=== PATIENT | male | born 1980 | race Caucasian/White ===

== ENCOUNTER 2022-12-03 01:20 | Emergency (ER) | payer OTHER ==
[~2022-12-03] VITALS: Ht 160 cm; Wt 137.9 kg
[2022-12-03 01:31] VITALS: BP 159/79; PULSE 110; RESP 22; TEMP 98.2; O2SAT 96
== END 2022-12-03 03:16 | disposition left against medical advice (07) ==
LOC: MED 01:20
DX: R06.02 Shortness of breath (principal); M79.89 Other specified soft tissue disorders; Z53.21 Procedure and treatment not carried out due to patient leaving prior to being seen by health care provider
CPT/HCPCS: 82948; 99281

== ENCOUNTER 2023-02-14 00:50 | Observation (INO) | payer OTHER ==
[~2023-02-14] VITALS: Ht 162.6 cm; Wt 127.0 kg
[2023-02-14 00:55] VITALS: BP 164/90; PULSE 104; RESP 20; TEMP 95.7; O2SAT 97
[2023-02-14 02:01] LABS: BASOPHILS % (AUTO) 0.2 % (0.0-2.0); EOSINOPHILS # (AUTO) 0.4 K/uL (0-0.4); EOSINOPHILS % (AUTO) 2.5 % (0.0-4.0); HEMOGLOBIN 16.7 g/dL (12.0-18.0); LYMPHOCYTES # (AUTO) 1.9 K/uL (2.0-11.5); LYMPHOCYTES % (AUTO) 12.9 % (20.5-51.1); MEAN CORPUSCULAR HEMOGLOBIN 29 pg (27-31); MEAN CORPUSCULAR HGB CONC 33 g/dL (33-37); MEAN CORPUSCULAR VOLUME 87.4 fL (80-94); MONOCYTES # (AUTO) 1.6 K/uL (0.8-1.0); MONOCYTES % (AUTO) 10.8 % (1.7-9.3); NEUTROPHILS % (AUTO) 73.6 % (42.2-75.2); PLATELET COUNT (AUTO) 373 K/uL (140-450); RED BLOOD CELL COUNT(AUTO) 5.83 MIL/uL (4.20-6.10); RED CELL DISTRIBUTION WIDTH 13.9 % (11.6-13.7); WHITE BLOOD COUNT (AUTO) 14.9 K/uL (4.8-10.8)
[2023-02-14 02:18] LABS: ALBUMIN 3.3 g/dL (3.4-5.0); ANION GAP 10.4 (8-16); CALCIUM 8.7 mg/dL (8.5-10.1); CARBON DIOXIDE 30.2 mmol/L (21-32); CREATININE 1.1 mg/dL (0.6-1.3); POTASSIUM 3.6 mmol/L (3.5-5.1); TOTAL BILIRUBIN 0.5 mg/dL (0.0-1.0)
[2023-02-14 02:21] LABS: LACTIC ACID 1.4 mmol/L (0.4-2.0)
[2023-02-14 03:58] LABS: APPEARANCE,URINE CLEAR (CLEAR); BILIRUBIN,URINE NEGATIVE (NEGATIVE); BLOOD, URINE NEGATIVE (NEGATIVE); COLOR,URINE YELLOW (YELLOW); LEUKOCYTE ESTERASE ,URINE 1+ (NEGATIVE); NITRITE, URINE NEGATIVE (NEGATIVE); PROTEIN,URINE NEGATIVE (NEGATIVE); UGLUCOSE NEGATIVE (NEGATIVE)
[2023-02-14 04:17] LABS: AMPHETAMINE, URINE POSITIVE ng/ml (NEG <=1000); BARBITURATE, URINE NEGATIVE ng/ml (NEG <=200); BENZODIAZEPINE, URINE NEGATIVE ng/mL (NEG <=200); CANNABINOID, URINE NEGATIVE ng/mL (NEG <=50); COCAINE, URINE NEGATIVE ng/mL (NEG <=300); OPIATE, URINE NEGATIVE ng/mL (NEG <=2000); PHENCYCLIDINE SCREEN,URINE NEGATIVE ng/mL (NEG <=25)
[2023-02-14] MEDS ORDERED: HYDROcodone/APAP 5/325 MG 1 TAB TAB PO PRN (05:45)
[2023-02-14] MEDS ORDERED: ONDANSETRON 4 MG/2 ML VIAL IVP PRN (05:45)
[2023-02-14] MEDS ORDERED: MORPHINE SULFATE 4 MG/ML SYR IVP PRN (05:45)
[2023-02-14] MEDS ORDERED: LORazepam 2 MG/ML VIAL IVP SCH (05:45)
[2023-02-14] MEDS ORDERED: ACETAMINOPHEN 325 MG TAB PO PRN (05:45)
[2023-02-14] MEDS ORDERED: POTASSIUM CHLORIDE 10 MEQ TABER PO PRN (05:45)
[2023-02-14] MEDS ORDERED: MAGNESIUM OXIDE 400 MG TAB PO PRN (05:45)
[2023-02-14] MEDS ORDERED: NACL 0.9% 1,000 ML IV SCH (05:45)
[2023-02-14] MEDS ORDERED: MORPHINE SULFATE 4 MG/ML SYR IVP ONE (06:30)
[2023-02-14] MEDS ORDERED: cefTRIAXone 1,000 MG VIAL ONE (06:44)
[2023-02-14 07:22] LABS: BACTERIA,URINE FEW /HPF (None Seen); MUCUS,URINE None Seen /LPF (None Seen); RBC,URINE 0-5 /HPF (0-5); SQUAMOUS EPITHELIAL CELL,UR 0-3 (FEW) /LPF (0-3 (FEW)); TRICHOMONAS,URINE None Seen /HPF (None Seen); WHITE BLOOD CELL CASTS,URINE None Seen /LPF (None Seen); YEAST,URINE None Seen /HPF (None Seen)
[2023-02-14] MEDS ORDERED: AZITHROMYCIN 250 MG TAB PO SCH (09:00)
[2023-02-14] MEDS ORDERED: ENOXAPARIN 40 MG/0.4 ML SYR SUBQ SCH (09:00)
[2023-02-14] MEDS: FUROSEMIDE 40 MG/4 ML VIAL IVP SCH ×2 (10:05→17:03)
[2023-02-14] MEDS ORDERED: BENZ150C2 PO (11:47)
[2023-02-14 12:15] LABS: BASOPHILS % (AUTO) 0.1 % (0.0-2.0); EOSINOPHILS # (AUTO) 0.5 K/uL (0-0.4); EOSINOPHILS % (AUTO) 2.4 % (0.0-4.0); HEMATOCRIT 47.4 % (36-52); HEMOGLOBIN 15.3 g/dL (12.0-18.0); LYMPHOCYTES # (AUTO) 2.2 K/uL (2.0-11.5); LYMPHOCYTES % (AUTO) 11.4 % (20.5-51.1); MEAN CORPUSCULAR HEMOGLOBIN 28 pg (27-31); MEAN CORPUSCULAR HGB CONC 32 g/dL (33-37); MEAN CORPUSCULAR VOLUME 87.6 fL (80-94); MONOCYTES # (AUTO) 2.3 K/uL (0.8-1.0); NEUTROPHILS # (AUTO) 14.3 K/uL (1.8-7.7); NEUTROPHILS % (AUTO) 74.1 % (42.2-75.2); PLATELET COUNT (AUTO) 373 K/uL (140-450); RED BLOOD CELL COUNT(AUTO) 5.41 MIL/uL (4.20-6.10); RED CELL DISTRIBUTION WIDTH 13.8 % (11.6-13.7); WHITE BLOOD COUNT (AUTO) 19.3 K/uL (4.8-10.8)
[2023-02-14 12:30] LABS: ALBUMIN 3.1 g/dL (3.4-5.0); ANION GAP 7.8 (8-16); CALCIUM 8.2 mg/dL (8.5-10.1); CARBON DIOXIDE 31.9 mmol/L (21-32); POTASSIUM 3.7 mmol/L (3.5-5.1); TOTAL BILIRUBIN 0.6 mg/dL (0.0-1.0); TOTAL PROTEIN, SERUM 7.3 g/dL (6.4-8.2)
[2023-02-14] MEDS ORDERED: methylPREDNISolone SS 40 MG/ML VIAL IVP SCH (13:00)
[2023-02-14 14:15] VITALS: BP 109/76; PULSE 105; RESP 21; TEMP 97.4
[2023-02-14 17:15] VITALS: BP 126/67; PULSE 99; RESP 18; TEMP 98.1; O2SAT 100
== END 2023-02-14 17:17 | disposition left against medical advice (07) ==
LOC: MED 00:50 → MTU 05:46
PROVIDERS: ADMIT Hospitalist; ATTEND Hospitalist
DX: I11.0 Hypertensive heart disease with heart failure (principal); I50.9 Heart failure, unspecified; F15.129 Other stimulant abuse with intoxication, unspecified; I42.9 Cardiomyopathy, unspecified; D72.829 Elevated white blood cell count, unspecified; E11.9 Type 2 diabetes mellitus without complications; J45.909 Unspecified asthma, uncomplicated; Z79.899 Other long term (current) drug therapy
CPT/HCPCS: 36415; 71045; 80053; 80305; 81001; 83605; 83880; 84484; 85025; 87040; 87086; 96361; 96365; 96372; 96375; 96376; 99285; G0378; J0696; J1650; J1940; J2270; J2920; J7060

== ENCOUNTER 2023-03-22 17:57 | Inpatient (IN) | payer OTHER ==
[~2023-03-22] VITALS: Ht 167.6 cm; Wt 90.7 kg
[~2023-03-22 17:57] MED LIST: BENZ150C2 PO
[2023-03-22 18:10] VITALS: BP 142/100; PULSE 112; RESP 22; TEMP 98; O2SAT 98
[2023-03-22] MEDS ORDERED: methylPREDNISolone SS 125 MG/2 ML VIAL IVP ONE (18:10)
[2023-03-22] MEDS ORDERED: diphenhydrAMINE 50 MG/ML VIAL IVP ONE (18:10)
[2023-03-22] MEDS ORDERED: EPINEPHrine 1 MG/ML AMP IM ONE (18:10)
[2023-03-22] MEDS ORDERED: FAMOTIDINE 20 MG/2 ML VIAL IVP ONE (18:10)
[2023-03-22] MEDS ORDERED: ONDANSETRON 4 MG/2 ML VIAL IVP ONE (18:10)
[2023-03-22] MEDS ORDERED: ALBUTEROL SULFATE/IPRATROPIU 3 ML SOL IH ONE (18:20)
[2023-03-22 18:30] VITALS: PULSE 102; RESP 19; O2SAT 95
[2023-03-22 21:16] LABS: BASOPHILS % (AUTO) 0.1 % (0.0-2.0); EOSINOPHILS % (AUTO) 0.3 % (0.0-4.0); HEMATOCRIT 50.4 % (36-52); HEMOGLOBIN 16.7 g/dL (12.0-18.0); LYMPHOCYTES # (AUTO) 1.1 K/uL (2.0-11.5); LYMPHOCYTES % (AUTO) 8.4 % (20.5-51.1); MEAN CORPUSCULAR HEMOGLOBIN 29 pg (27-31); MEAN CORPUSCULAR HGB CONC 33 g/dL (33-37); MEAN CORPUSCULAR VOLUME 88.1 fL (80-94); MONOCYTES # (AUTO) 0.4 K/uL (0.8-1.0); MONOCYTES % (AUTO) 3.3 % (1.7-9.3); NEUTROPHILS # (AUTO) 11.4 K/uL (1.8-7.7); NEUTROPHILS % (AUTO) 87.9 % (42.2-75.2); PLATELET COUNT (AUTO) 310 K/uL (140-450); RED BLOOD CELL COUNT(AUTO) 5.72 MIL/uL (4.20-6.10); RED CELL DISTRIBUTION WIDTH 14.3 % (11.6-13.7)
[2023-03-22 21:35] LABS: ALBUMIN 3.4 g/dL (3.4-5.0); BILIRUBIN,DIRECT 0.1 mg/dL (0.0-0.3); CALCIUM 9.5 mg/dL (8.5-10.1); CARBON DIOXIDE 31.9 mmol/L (21-32); POTASSIUM 3.9 mmol/L (3.5-5.1); TOTAL BILIRUBIN 0.3 mg/dL (0.0-1.0); TOTAL PROTEIN, SERUM 8.7 g/dL (6.4-8.2)
[2023-03-23] VITALS (9 sets, daily range): BP systolic 122–152; BP diastolic 71–80; PULSE 78–129; RESP 18–26; TEMP 97.6–98.6; O2SAT 93–100
[2023-03-23] MEDS ORDERED: LORazepam 1 MG TAB PO PRN
[2023-03-23] MEDS ORDERED: MAG SULF 2000 MG/WATER PREMIX 50 ML IV PRN
[2023-03-23] MEDS ORDERED: ZOLPIDEM 5 MG TAB PO PRN
[2023-03-23] MEDS ORDERED: HYDROcodone/APAP 5/325 MG 1 TAB TAB PO PRN
[2023-03-23] MEDS ORDERED: ONDANSETRON 4 MG/2 ML VIAL IVP PRN
[2023-03-23] MEDS ORDERED: POTASSIUM CHLORIDE 10 MEQ TABER PO PRN
[2023-03-23] MEDS ORDERED: ACETAMINOPHEN 325 MG TAB PO PRN
[2023-03-23] MEDS ORDERED: MAGNESIUM OXIDE 400 MG TAB PO PRN
[2023-03-23] MEDS ORDERED: KCL 20 MEQ IN 100 mL PREMIX 200 ML IV PRN
[2023-03-23] MEDS: ALBUTEROL SULFATE/IPRATROPIU 3 ML SOL IH SCH ×4 (00:39→19:00)
[2023-03-23] MEDS: NACL 0.9% 1,000 ML IV SCH ×2 (02:04→11:17)
[2023-03-23] MEDS: methylPREDNISolone SS 40 MG/ML VIAL IVP SCH ×4 (02:08→17:48)
[2023-03-23] MEDS: BUDESONIDE 0.5 MG/2 ML NEBU INH SCH ×2 (07:30→19:30)
[2023-03-23] MEDS: DOCUSATE SODIUM 100 MG GELCAP PO SCH (09:00)
[2023-03-23] MEDS: ENOXAPARIN 40 MG/0.4 ML SYR SUBQ SCH (10:01)
[2023-03-23 17:22] LABS: BLOOD GAS BASE EXCESS -0.5 mmol/L (-2.0-2.0); BLOOD GAS O2 SAT% 95.1 % (92.0-98.5); BLOOD GAS PCO2 43.9 mmHg (35-45); BLOOD GAS PH 7.373 (7.35-7.45); BLOOD GAS PO2 78.5 mmHg (75-100)
[2023-03-23 19:00] LABS: BASOPHILS # (AUTO) 0.1 K/uL (0.00-0.22); BASOPHILS % (AUTO) 0.2 % (0.0-2.0); HEMATOCRIT 45.7 % (36-52); HEMOGLOBIN 15.1 g/dL (12.0-18.0); LYMPHOCYTES # (AUTO) 1.2 K/uL (2.0-11.5); LYMPHOCYTES % (AUTO) 5.3 % (20.5-51.1); MEAN CORPUSCULAR HEMOGLOBIN 29 pg (27-31); MEAN CORPUSCULAR HGB CONC 33 g/dL (33-37); MEAN CORPUSCULAR VOLUME 88.2 fL (80-94); MONOCYTES # (AUTO) 0.7 K/uL (0.8-1.0); MONOCYTES % (AUTO) 3.1 % (1.7-9.3); NEUTROPHILS # (AUTO) 21.2 K/uL (1.8-7.7); NEUTROPHILS % (AUTO) 91.4 % (42.2-75.2); PLATELET COUNT (AUTO) 336 K/uL (140-450); RED BLOOD CELL COUNT(AUTO) 5.18 MIL/uL (4.20-6.10); RED CELL DISTRIBUTION WIDTH 14.4 % (11.6-13.7); WHITE BLOOD COUNT (AUTO) 23.2 K/uL (4.8-10.8)
[2023-03-23 19:36] LABS: ALBUMIN 3.2 g/dL (3.4-5.0); ANION GAP 7.5 (8-16); CALCIUM 9.1 mg/dL (8.5-10.1); CARBON DIOXIDE 29.5 mmol/L (21-32); CREATININE 0.9 mg/dL (0.6-1.3); MAGNESIUM 1.9 mg/dL (1.8-2.4); TOTAL BILIRUBIN 0.3 mg/dL (0.0-1.0); TOTAL PROTEIN, SERUM 8.3 g/dL (6.4-8.2)
[2023-03-23] MEDS: diphenhydrAMINE 50 MG CAP PO PRN (22:48)
[2023-03-24] VITALS (10 sets, daily range): BP systolic 109–173; BP diastolic 62–117; PULSE 108–117; RESP 18–24; TEMP 96.9–98; O2SAT 92–99
[2023-03-24] MEDS: ALBUTEROL SULFATE/IPRATROPIU 3 ML SOL IH SCH ×4 (00:04→20:19)
[2023-03-24] MEDS: methylPREDNISolone SS 40 MG/ML VIAL IVP SCH ×2 (00:09→05:10)
[2023-03-24] MEDS: NACL 0.9% 1,000 ML IV SCH (01:00)
[2023-03-24] MEDS ORDERED: DEXTROSE 50% 50 ML SYR IVP PRN (02:40)
[2023-03-24 05:40] LABS: HEMATOCRIT 43.7 % (36-52); HEMOGLOBIN 14.3 g/dL (12.0-18.0); LYMPHOCYTES # (AUTO) 1.1 K/uL (2.0-11.5); LYMPHOCYTES % (AUTO) 4.5 % (20.5-51.1); MEAN CORPUSCULAR HEMOGLOBIN 29 pg (27-31); MEAN CORPUSCULAR HGB CONC 33 g/dL (33-37); MEAN CORPUSCULAR VOLUME 88.5 fL (80-94); MONOCYTES % (AUTO) 4.1 % (1.7-9.3); NEUTROPHILS # (AUTO) 22.2 K/uL (1.8-7.7); NEUTROPHILS % (AUTO) 91.4 % (42.2-75.2); PLATELET COUNT (AUTO) 331 K/uL (140-450); RED BLOOD CELL COUNT(AUTO) 4.94 MIL/uL (4.20-6.10); RED CELL DISTRIBUTION WIDTH 14.2 % (11.6-13.7); WHITE BLOOD COUNT (AUTO) 24.3 K/uL (4.8-10.8)
[2023-03-24] MEDS: INSULIN LISPRO SLIDING SCALE 100 UNITS/ML VIAL SUBQ PRN ×4 (06:37→20:26)
[2023-03-24] MEDS: BLOOD GLUCOSE MONITORING 1 DEV DEV FS SCH ×4 (06:37→20:22)
[2023-03-24 06:42] LABS: ALBUMIN 3.1 g/dL (3.4-5.0); ANION GAP 8.9 (8-16); CARBON DIOXIDE 29.3 mmol/L (21-32); CREATININE 0.8 mg/dL (0.6-1.3); MAGNESIUM 2.1 mg/dL (1.8-2.4); PHOSPHORUS 2.9 mg/dL (2.5-4.9); POTASSIUM 4.2 mmol/L (3.5-5.1); TOTAL BILIRUBIN 0.3 mg/dL (0.0-1.0); TOTAL PROTEIN, SERUM 7.9 g/dL (6.4-8.2)
[2023-03-24] MEDS: BUDESONIDE 0.5 MG/2 ML NEBU INH SCH ×2 (07:46→20:28)
[2023-03-24] MEDS: FUROSEMIDE 40 MG/4 ML VIAL IVP SCH ×2 (08:47→16:27)
[2023-03-24] MEDS: DOCUSATE SODIUM 100 MG GELCAP PO SCH (08:47)
[2023-03-24] MEDS: ENOXAPARIN 40 MG/0.4 ML SYR SUBQ SCH (08:56)
[2023-03-25] VITALS (8 sets, daily range): BP systolic 125–144; BP diastolic 66–90; PULSE 98–110; RESP 18–24; TEMP 97.2–97.5; O2SAT 90–100
[2023-03-25] MEDS: diphenhydrAMINE 50 MG CAP PO PRN (01:20)
[2023-03-25] MEDS: ALBUTEROL SULFATE/IPRATROPIU 3 ML SOL IH SCH ×2 (02:10→07:43)
[2023-03-25] MEDS: BLOOD GLUCOSE MONITORING 1 DEV DEV FS SCH ×2 (06:35→11:38)
[2023-03-25] MEDS: BUDESONIDE 0.5 MG/2 ML NEBU INH SCH (07:44)
[2023-03-25] MEDS: DOCUSATE SODIUM 100 MG GELCAP PO SCH (09:00)
[2023-03-25] MEDS: ENOXAPARIN 40 MG/0.4 ML SYR SUBQ SCH (09:00)
[2023-03-25] MEDS: FUROSEMIDE 40 MG/4 ML VIAL IVP SCH (09:14)
[2023-03-25] MEDS: INSULIN LISPRO SLIDING SCALE 100 UNITS/ML VIAL SUBQ PRN (11:14)
[2023-03-25] MEDS ORDERED: SPIR50TA PO (12:04)
[2023-03-25] MEDS ORDERED: DAPA5TAB PO (12:04)
[2023-03-25] MEDS ORDERED: FURO-572 PO (12:04)
[2023-03-25] MEDS ORDERED: METF-350 PO (12:04)
[2023-03-25] MEDS ORDERED: ATOR20TA PO (12:04)
[2023-03-25 12:13] LABS: BASOPHILS # (AUTO) 0.1 K/uL (0.00-0.22); BASOPHILS % (AUTO) 0.4 % (0.0-2.0); EOSINOPHILS # (AUTO) 0.1 K/uL (0-0.4); EOSINOPHILS % (AUTO) 0.7 % (0.0-4.0); HEMATOCRIT 46.4 % (36-52); HEMOGLOBIN 15.4 g/dL (12.0-18.0); LYMPHOCYTES # (AUTO) 2.9 K/uL (2.0-11.5); MEAN CORPUSCULAR HEMOGLOBIN 29 pg (27-31); MEAN CORPUSCULAR HGB CONC 33 g/dL (33-37); MONOCYTES # (AUTO) 1.8 K/uL (0.8-1.0); MONOCYTES % (AUTO) 10.4 % (1.7-9.3); NEUTROPHILS % (AUTO) 71.5 % (42.2-75.2); PLATELET COUNT (AUTO) 302 K/uL (140-450); RED BLOOD CELL COUNT(AUTO) 5.28 MIL/uL (4.20-6.10); RED CELL DISTRIBUTION WIDTH 14.4 % (11.6-13.7); WHITE BLOOD COUNT (AUTO) 16.8 K/uL (4.8-10.8)
[2023-03-25 12:59] LABS: ALBUMIN 3.1 g/dL (3.4-5.0); ANION GAP 5.6 (8-16); CALCIUM 8.2 mg/dL (8.5-10.1); CARBON DIOXIDE 37.7 mmol/L (21-32); CREATININE 0.9 mg/dL (0.6-1.3); MAGNESIUM 2.2 mg/dL (1.8-2.4); PHOSPHORUS 2.8 mg/dL (2.5-4.9); POTASSIUM 3.3 mmol/L (3.5-5.1); TOTAL BILIRUBIN 0.3 mg/dL (0.0-1.0); TOTAL PROTEIN, SERUM 7.6 g/dL (6.4-8.2)
== END 2023-03-25 13:08 | disposition home or self-care (01) | DRG 811 ==
LOC: MED 17:57 → MTU 23:58 → UNDOADMIN 03-23 00:04 → MTU 03-23 00:04
PROVIDERS: ADMIT Hospitalist; ATTEND Hospitalist
DX: T78.3XXA Angioneurotic edema, initial encounter (principal); J96.01 Acute respiratory failure with hypoxia; I50.23 Acute on chronic systolic (congestive) heart failure; I11.0 Hypertensive heart disease with heart failure; E66.9 Obesity, unspecified; F15.90 Other stimulant use, unspecified, uncomplicated; T50.995A Adverse effect of other drugs, medicaments and biological substances, initial encounter; F19.10 Other psychoactive substance abuse, uncomplicated; I95.1 Orthostatic hypotension; Z79.899 Other long term (current) drug therapy; Z91.198 Patient's noncompliance with other medical treatment and regimen for other reason; Y92.89 Other specified places as the place of occurrence of the external cause; Z68.32 Body mass index [BMI] 32.0-32.9, adult
CPT/HCPCS: 36415; 36600; 70450; 71045; 80048; 80053; 80076; 82803; 82948; 83735; 83880; 84100; 85025; 87081; 93005; 94640; 96372; 96374; 96375; 99291; J0171; J1200; J1650; J1940; J2405; J2920; J2930; J3490; J7626; Q0092; Q0163